=== PATIENT | female | born 1955 | race African-American/Black ===

== ENCOUNTER 2023-12-30 08:03 | Day surgery (SDC) | payer BC ==
[2023-12-23 15:42] VITALS: BMI 34.2
[2023-12-30 10:26] VITALS: TEMP 97.3
[2023-12-30 10:56] VITALS: BP 125/69; PULSE 78; RESP 14
== END 2023-12-30 10:45 | disposition home or self-care (01) ==
LOC: FASU-ENDO 08:03
PROVIDERS: ATTEND Internal Medicine Gastroenterology
PROC: 0DJD8ZZ Inspection of Lower Intestinal Tract, Via Natural or Artificial Opening Endoscopic (ICD-10-PCS; principal; 2023-12-30 09:30)
DX: Z12.11 Encounter for screening for malignant neoplasm of colon (principal); Z80.0 Family history of malignant neoplasm of digestive organs; Z83.719 Family history of colon polyps, unspecified
CPT/HCPCS: 82962